=== PATIENT | female | born 1960 | race Caucasian/White ===

== ENCOUNTER → 2023-10-30 01:36 | Outpatient (CLI) | payer OTHER, SELFPAY ==
--- NOTE | 2023-10-30 | ETT_ITS ---
APPROVED REPORT Exam: Exercise Treadmill Patient Location: Out-Patient Room/Bed: Stress Nurse: Sameera Recinos RN Ordering Provider:AMRY RAMOS, Contact Number: [phone] BMI: 27.80 Baseline Rhythm: Sinus Rhythm Indications: Extertional dyspnea, diaphoresis, palpitations, Medical History Medical History: HTN, HLD, hyperglycemia, chronic back pain, hepatic cyst Cardiac Medications: Dorzolamide, fluoxetine, lantanoprost, lisinopril, metoprolol succinate, naltrex one, patoprazole, simvastatin Allergies: No known allergies Cardiac Risk Factors: Family hx, HTN, HLD, pre diabetes Previous Cardiac Procedures: None Pretest Chest Pain Characteristics: None Exercise History: Sedentary Physical Disabilities: None Lung Sounds: Clear to auscultation Heart Sounds: Regular Stress Test Details Test: Exercise stress testing was performed using a Bin protocol. Rest Stress HR Resting HR Supine: 68 bpm Max Heart Rate (APMHR): 156 bpm Resting HR Standin bpm Target HR (85% APMHR): 133 bpm Max HR Achieved: 146 bpm % of APMHR: 94 Recovery HR: 75 bpm HR response to stress: Normal HR response to stress BP Resting BP Supine: 142/90 mmHg Resting BP Standin/98 mmHg Max BP: 200/98 mmHg Recovery BP: 156/82 mmHg BP response to stress: Normal blood pressure response to stress. ECG Resting ECG: Sinus Rhythm Ectopy: None Stress ECG: Sinus Tachycardia ST Change: No significant ST segment changes noted Arrhythmia: Rare PVC's Recovery ECG: Sinus Rhythm Recovery ST Change: No significant ST segment changes noted Recovery Arrhythmia: Rare PAC's Clinical Reason for Termination: Target HR Achieved, Fatigue Stress Symptoms: General Fatigue Exercise duration: 10 min06 sec Highest Stage Reached: Stage 3: 3.4 mph at 14% grade. Exercise capacity: 12.00 METs Angina Score: None Aldana Treadmill Score: 9.1 Rate Pressure Product: [id number] Stress ECG Conclusion 1. Resting electrocardiogram was normal 2. Patient exercised on the Bin protocol and completed a workload of 12 METS 3. Normal heart rate and blood pressure response to exercise. The patient achieved 94% of predicted heart rate for age 4. There was no electrocardiographic evidence of myocardial ischemia 5. There were no significant dysrhythmias Aldana Treadmill Score is 9.1 which is Low risk.
== END ==
PROVIDERS: PCP Internal Medicine; Visit Provider Family Medicine
DX: R06.09 Other forms of dyspnea (principal); R61 Generalized hyperhidrosis; R00.2 Palpitations
CPT/HCPCS: 93016; 93018; 93017